=== PATIENT | female | born 1995 | race Hispanic/Latino ===

== ENCOUNTER 2024-03-06 16:56 | Day surgery (SDC) | payer OTHER ==
[2024-03-06] MEDS ORDERED: diphenhydrAMINE 25 MG CAP PO SCH (18:45)
[2024-03-06 18:59] LABS: #Basophils 0.04 10x3/uL (0.0-0.2); #Eosinophils 0.12 10x3/uL (0.0-0.5); #Monocytes 0.55 10x3/uL (0.0-1.1); #Neutrophils 5.26 10x3/uL (1.5-8.4); %Basophils 0.5 % (0.0-2.0); %Eosinophils 1.6 % (0.0-6.0); %Lymphocytes 16.4 % (18.0-47.0); %Monocytes 7.5 % (0.0-10.0); %Neutrophils 72.1 % (40.0-75.0); Hematocrit 25.3 % (34.9-44.5); Hemoglobin 8.1 g/dL (12.0-15.5); Mean Corpuscular Hemoglobin 23.7 pg (27.0-33.0); Mean Platelet Volume 10.1 fL (7.4-10.4); Platelet Count 340 10x3/uL (150-450); RBC Distribution Width 16.4 % (11.5-14.5); Red Blood Cell (RBC) Count 3.42 10x6/uL (3.90-5.03); White Blood Cell (WBC) Count 7.3 10x3/uL (3.5-10.5)
[2024-03-06 19:13] LABS: ALT (SGPT) 31 U/L (8-55); AST (SGOT) 26 U/L (5-34); Albumin 2.1 g/dL (3.5-5.0); Alkaline Phosphatase 1115 U/L (40-110); Anion Gap 13 mmol/L (10-20); BUN (Urea Nitrogen) 8 mg/dL (7.0-18.7); Bilirubin, Total 0.9 mg/dL (0.2-1.2); Calc. Creatinine Clearance 0 mL/min (70-130); Calcium 8.6 mg/dL (7.8-10.44); Carbon Dioxide 20 mmol/L (22-29); Chloride 106 mmol/L (98-107); Estimated GFR 127; Globulin 4.6 g/dL (2.4-3.5); Glucose 102 mg/dL (70-105); Potassium 3.5 mmol/L (3.5-5.1); Protein, Total 6.7 g/dL (6.0-8.3); Sodium 135 mmol/L (136-145)
[2024-03-06 19:17] LABS: Microcytosis MODERATE=15-30 cells (100X) (0-5/hpf)
[2024-03-06 19:18] LABS: Hypochromia SLIGHT = 6-15 cells (100X) (0-5/hpf); Large Platelets SLIGHT (None Seen); Polychromasia SLIGHT = 2-3 cells (100X) (0-2/hpf); Stomatocytes SLIGHT = 2-5 cells (100X) (0-1/hpf)
[2024-03-06 19:19] LABS: Platelet Adequacy Comment Appears Adequate
[2024-03-06] MEDS ORDERED: Ursodiol 300 MG CAP PO SCH (21:00)
== END 2024-03-06 21:25 | disposition home or self-care (01) ==
LOC: CSHLD/OP 16:56
PROVIDERS: ATTEND Family Medicine
DX: O26.893 Other specified pregnancy related conditions, third trimester (principal); Z3A.36 36 weeks gestation of pregnancy; Z79.899 Other long term (current) drug therapy; Z98.890 Other specified postprocedural states
CPT/HCPCS: 36415; 76819; 80053; 82239; 85025; 99284

== ENCOUNTER 2024-03-10 10:02 | Inpatient (IN) | payer MEDICAID, OTHER ==
[2024-03-10] MEDS ORDERED: Tranexamic Acid 1,000 MG/10 ML VIAL IVP PRN (10:47)
[2024-03-10] MEDS ORDERED: hydrALAZINE 20 MG/ML VIAL SLOW IVP PRN ×2 (10:47→19:09)
[2024-03-10] MEDS ORDERED: Lidocaine 1% (PF) 30 ML VIAL SC PRN (10:47)
[2024-03-10] MEDS ORDERED: Methylergonovine 0.2 MG/ML VIAL IM PRN (10:47)
[2024-03-10] MEDS ORDERED: Acetaminophen 500 MG TAB PO PRN (10:47)
[2024-03-10] MEDS ORDERED: Ondansetron PF 4 MG/2 ML Vial IVP PRN ×3 (10:47→19:09)
[2024-03-10] MEDS ORDERED: HYDROcodone/Acetaminophen 5/325 mg Tablet PO PRN (10:47)
[2024-03-10] MEDS ORDERED: fentaNYL 50 mcg/mL 1 mL Vial SLOW IVP PRN (10:47)
[2024-03-10] MEDS ORDERED: Ibuprofen 800 MG TAB PO PRN (10:47)
[2024-03-10] MEDS ORDERED: Misoprostol 200 MCG TAB PR PRN (10:47)
[2024-03-10] MEDS ORDERED: Promethazine HCl 25 MG/ML VIAL IM PRN ×3 (10:47→19:09)
[2024-03-10] MEDS ORDERED: Diphenoxylate HCl/Atropine Tablet PO PRN (10:47)
[2024-03-10] MEDS ORDERED: Carboprost 250 MCG/ML AMP IM PRN (10:47)
[2024-03-10] MEDS ORDERED: Lactated Ringer's 1,000 ML IV SCH (11:00)
[2024-03-10] MEDS ORDERED: Oxytocin 30 units/NS 500 ML 500 ML IV SCH ×2 (11:00)
[2024-03-10 11:02] VITALS: BMI 31.2
[2024-03-10 11:45] LABS: Hematocrit 27.4 % (34.9-44.5); Hemoglobin 8.5 g/dL (12.0-15.5); Mean Corpuscular Hemoglobin 23.1 pg (27.0-33.0); Mean Corpuscular Volume 74.5 fL (81.6-98.3); Mean Platelet Volume 10.6 fL (7.4-10.4); Platelet Count 336 10x3/uL (150-450); Red Blood Cell (RBC) Count 3.68 10x6/uL (3.90-5.03); White Blood Cell (WBC) Count 7.9 10x3/uL (3.5-10.5)
[2024-03-10 12:20] LABS: HBsAg Index 0.22 S/CO (0-0.99); Hep B Surf Ag - L&D Non-Reactive S/CO (NonReactive)
[2024-03-10 12:22] LABS: Syphilis Antibody Nonreactive (Nonreactive); Syphilis Antibody Index 0.05 S/CO (<1.00 Non-Reactive)
[2024-03-10] MEDS: Oxytocin 30 units/NS 500 ML 500 ML IV SCH (14:37)
[2024-03-10] MEDS: fentaNYL/Ropivacaine Epidural 100 ML ONE (17:01)
[2024-03-10] MEDS ORDERED: diphenhydrAMINE 50 MG/ML VIAL IVP PRN (17:05)
[2024-03-10] MEDS ORDERED: Acetaminophen 325 MG TAB PO PRN (17:05)
[2024-03-10] MEDS ORDERED: Lactated Ringer's 500 ML IV PRN (17:05)
[2024-03-10] MEDS ORDERED: ePHEDrine Sulfate 50 MG/10 ML VIAL SLOW IVP PRN (17:05)
[2024-03-10] MEDS ORDERED: Naloxone HCl 0.4 mg/ml Vial IVP PRN ×2 (17:05)
[2024-03-10] MEDS ORDERED: Moisturizing Cream (Eucerin) 113 GM JAR TOP PRN (17:05)
[2024-03-10] MEDS ORDERED: fentaNYL 2 mcg/Ropivacaine 0.2% Epidural 100 ML CADD EPIDURAL SCH (17:15)
[2024-03-10] MEDS ORDERED: Communication Order-Pharmacy FS SCH (17:15)
[2024-03-10] MEDS ORDERED: Lanolin Ointment 7 GM TUBE TOP PRN (19:09)
[2024-03-10] MEDS ORDERED: Milk Of Magnesia 30 ML UDCUP PO PRN (19:09)
[2024-03-10] MEDS ORDERED: diphenhydrAMINE 25 MG CAP PO PRN (19:09)
[2024-03-10] MEDS ORDERED: Boostrix 0.5 ML (Tdap) VIAL (>/=7 yrs of age) IM ONE (19:09)
[2024-03-10] MEDS ORDERED: Bisacodyl 10 MG SUPP PR PRN (19:09)
[2024-03-10] MEDS: Docusate 100 MG CAP PO SCH (23:28)
[2024-03-10] MEDS: Ibuprofen 800 MG TAB PO SCH (23:28)
[2024-03-11] MEDS: HYDROcodone/Acetaminophen 5/325 mg Tablet PO PRN (04:40)
[2024-03-11] MEDS: Prenatal Vitamin 1 TAB PO SCH (08:12)
[2024-03-11] MEDS: Ferrous Sulfate 325 MG TAB PO SCH (08:12)
[2024-03-11] MEDS ORDERED: Bupivacaine 0.25% HCL 30 ML VIAL ONE (17:00)
[2024-03-12 08:11] VITALS: BP 101/50; TEMP 99.1
== END 2024-03-12 14:00 | disposition home or self-care (01) | DRG 805 ==
LOC: CSHLD 10:02 → CSHPP 22:10
PROVIDERS: ADMIT Family Medicine; ATTEND Family Medicine
PROC: 10E0XZZ Delivery of Products of Conception, External Approach (ICD-10-PCS; principal; 2024-03-10)
PROC: 10907ZC Drainage of Amniotic Fluid, Therapeutic from Products of Conception, Via Natural or Artificial Opening (ICD-10-PCS; 2024-03-10)
DX: O26.643 Intrahepatic cholestasis of pregnancy, third trimester (principal); K83.1 Obstruction of bile duct; Z37.0 Single live birth; Z3A.37 37 weeks gestation of pregnancy; Z79.82 Long term (current) use of aspirin; O99.02 Anemia complicating childbirth; D50.9 Iron deficiency anemia, unspecified
CPT/HCPCS: 36415; 51702; 85027; 86780; 86850; 86900; 86901; 87340; J0665; J2590